=== PATIENT | female | born 2005 | race Two or more races ===

== ENCOUNTER 2024-11-09 16:44 | Emergency (ER) | payer MEDICAID, SELFPAY ==
[2024-11-09 16:45] VITALS: BMI 24.3
[2024-11-09 17:57] VITALS: BP 111/70; PULSE 84; RESP 16; TEMP 37.1; O2SAT 100
--- NOTE | 2024-11-09 18:08 | EDNOTE_ITS ---
ED Eye Problem RME/HPI General Chief complaint: Eye Problems Stated complaint: R EYE SWELLING/REDNESS X3 DAYS Time Seen by Provider: 11/09/24 17:54 Source: patient Arrival date/time: 11/09/24 16:44 This is a 19-year-old female who presents to the emergency department with complaints of right upper eyelid swelling and erythema that began 3 days ago. She was evaluated by her primary care provider 1 day ago and was started on cephalexin. She reports taking 2 doses so far. She denies eye pain, visual changes, or trauma to the area. She presents today for further evaluation due to persistent symptoms, no worsening. Limitations: no limitations Related Data Previous Rx's ?Medication ?Instructions ?Recorded acetaminophen 500 mg tablet 500 mg PO QID PRN pain #20 tabs 12/30/17 (Tylenol Extra Strength) cephalexin 500 mg capsule (Keflex) 500 mg PO BID #14 c aps 12/30/17 erythromycin 5 mg/gram (0.5 %) eye 0.5 inch ophthalmic (eye) TID 7 11/09/24 ointment days #3.5 grams Allergies Allergy/AdvReac Type Severity Reaction Status Date / Time No Known Allergies Allergy Verified 11/09/24 16:48 Review of Systems Review of Systems Systems Reviewed: All systems reviewed, normal except as documented Narrative Review of Systems: Gen: No fever, no chills, no weight loss EYES: No discharge, no visual changes, +eyelid swelling HEENT: No ear pain, no congestion, no sore throat PULM: No shortness of breath, no cough, no congestion CV: No chest pain, no dyspnea on exertion, no palpitations GI: No nausea, no vomiting, no diarrhea, no pain, no constipation : No frequency, no urgency,? no dysuria Musc/skel: No joint pain, no back pain Skin: No rash? Psyc: No hallucinations, no depression Heme/Lymph: No easy bleeding or bruising tendencies Neuro: No weakness, no headache ED Exam General Limitations: Present no limitations General appearance: Present alert and in no apparent distress Head Head exam: Present atraumatic Eye Eye exam: Present PERRL, EOMI and periorbital swelling (Upper lid erythmemic mild swelling. ); Absent periorbital tenderness ENT ENT exam: Present normal exam, normal oropharynx and mucous membranes moist Neck Neck exam: Present normal inspection, full ROM and trachea midline Chest Chest inspection: Present normal inspection and symmetric chest wall rise Respiratory Respiratory exam: Present normal lung sounds bilaterally Cardiovascular Cardiovascular exam: Present regular rate, normal rhythm and normal heart sounds Abdominal Exam Abdominal exam: Present soft and normal bowel sounds Extremities Exam Extremities exam: Present normal inspection and full ROM Back Exam Back exam: Present normal inspection and full ROM Neurological Exam Neurological exam: Present alert, oriented X3 and CN II-XII intact Psychiatric Psychiatric exam: Present normal affect and normal mood Skin Skin exam: Present warm, dry, intact and normal color Course Quality Measures none Orders Category Date Time Status cefTRIAXone [Rocephin] 1,000 mg Med 11/09/24 18:04 Discontinued Lidocaine 1% 20 ml [Xylocaine 1% 20 ML] 2.1 ml IM X1 dexAMETHasone TAB [Decadron Tab] Med 11/09/24 18:07 Discontinued 10 mg PO X1 ONE Vital Signs Vital signs: Vital Signs Temperature 98.7 F 11/09/24 17:57 Pulse Rate 84 11/09/24 17:57 Respiratory Rate 16 11/09/24 17:57 Blood Pressure 111/70 11/09/24 17:57 Pulse Oximetry (%) 100 11/09/24 17:57 Oxygen Delivery Method Room Air 11/09/24 17:57 Eye MDM Narrative MDM Narrative:: On exam, swelling and erythema are localized to the upper eyelid with no signs of proptosis, impaired xtraocular movements, or conjunctival injection?findings reassuring for no orbital involvement. Given the early stage of antibiotic therapy and absence of red flag findings, current treatment plan is to continue oral cephalexin with close outpatient follow-up. Note- 1 dose of Rocephin IM and Dexamethasone given in ED. Patient educated on warning signs for orbital cellulitis including worsening swelling, vision changes, eye pain, or fever. Ophthalmology consult not indicated at this time. Discharge appropriate with strict return precautions. Patient data External records reviewed:: Other (specify) Clinical information provided by:: patient Social determinants that could affect healthcare access:: none Patient has the following chronic illnesses:: none How is presenting disease/condition affected by chronic disease/condition?: no chronic disease Evaluation data The following diagnostics were reviewed and interpreted by me:: other (specify) Lab and/or radiology exams considered but not ordered:: no Interpretation Summary: n/a Medications / Prescriptions Medications or Prescriptions considered but not ordered:: abx, patient already on keflex Medication administrations:: Medication Administration History Discontinued Medications Ceftriaxone Sodium 1,000 mg/ (Lidocaine HCl 2.1 ml) 0 mg IM X1 ONE Stop: 11/09/24 18:05 Last Admin: 11/09/24 18:21 Dose: 1,000 mg Documented By: OA Dexamethasone (Dexamethasone 4 Mg Tablet) 10 mg PO X1 ONE Stop: 11/09/24 18:08 Last Admin: 11/09/24 18:23 Dose: 10 mg Documented By: OA meds administered. Consultations Consultation(s) initiated? (list below): No Diagnosis Eye Problem Differential Diagnosis: corneal abrasion, conjunctivitis, periorbital cellulitis, subconjunctival hemorrhage and corneal ulcer Most likely diagnosis given after review of the tests above:: Upper eye lid right cellulitis Admission Indicated Admission indicated?: not indicated Admission Request Was there a request for admission?: No Disposition Plan Disposition Plan: Discharge Discharge Attestation Discharge Attestation: The patient and all family members were given an opportunity to ask questions and understood the discharge instructions. Discharge instructions specifically effects, indications for sooner follow up or return to the emergency department, and the expected course of current diagnosis. Patient condition: Stable Discharge Plan Plan Patient Disposition: HOME (Self Care) Patient condition on transfer: Stable Prescriptions/Referrals Prescriptions/Med Rec: New erythromycin 5 mg/gram (0.5 %) ointment 0.5 inch ophthalmic (eye) TID 7 Days Qty: 3.5 0RF No Action acetaminophen [Tylenol Extra Strength] 500 mg tablet 500 mg PO QID PRN (Reason: pain) Qty: 20 0RF cephalexin [Keflex] 500 mg capsule 500 mg PO BID Qty: 14 0RF Problem List Clinical Impression: Infection of eyelid Patient/Caregiver Discharge Instructions Discharge Activity: activity as tolerated Additional Instructions: Please continue to take your antibiotics 3 times a day as directed. - Apply the eye antibiotic as directed. - Use warm compress to clean eye lid for applying antibiotic on eye. - We did give you a Rocephin shot 1 g to help with infection. - 1 dose of steroids to help with inflammation If swelling to eyelid is worsen please return by Wednesday for evaluation possible IV antibiotics. Otherwise keep your appointment with your PCP on Wednesday for follow-up Print Language: Chilean Stand Alone Forms: Melissa Award Info., Work/School Release, Patient Portal Info Letter PA/ANIMAL HUMANE AGENT SUPERVISOR Supervising Physician PA/ANIMAL HUMANE AGENT SUPERVISOR Supervising Physician: Dr Joe
[2024-11-09] MEDS: cefTRIAXone 1,000 MG, LIDOCAINE 1% 20 ML 2.1 ML IM (18:21)
[2024-11-09] MEDS: dexAMETHasone 4 MG TABLET 10 MG PO (18:23)
== END 2024-11-09 18:24 | disposition home or self-care (01) ==
PROVIDERS: Emergency Provider Emergency Medicine; PCP Family Medicine
DX: H01.9 Unspecified inflammation of eyelid (principal)
CPT/HCPCS: 96372; 99283; J0696; J3490; J8540